=== PATIENT | male | born 1960 | race Caucasian/White ===

== ENCOUNTER 2021-05-15 02:45 | Inpatient (IN) | payer OTHER ==
[~2021-05-15] VITALS: Ht 175.3 cm; Wt 80.3 kg
[2021-05-15] VITALS (8 sets, daily range): BP systolic 126–197; BP diastolic 60–107
[2021-05-15] MEDS ORDERED: ATORVASTATIN CA20 MG PO (03:29)
[2021-05-15 03:30] LABS: HEMATOCRIT 38.8 % (42.0-52.0); HEMOGLOBIN 12.1 gm/dL (14.0-18.0); MCH 24.3 pg (26.0-34.0); MCHC 31.1 g/dL (28.0-37.0); MCV 78.3 fL (80.0-100.0); PLATELET COUNT 235 thou/uL (150-400); RBC 4.96 mil/uL (4.50-6.00); WBC 8.2 thou/uL (4.0-11.0)
[2021-05-15] MEDS ORDERED: CLONAZEPAM 0.50.5 M1 PO (03:30)
[2021-05-15] MEDS ORDERED: OXYCODONE HCL5 MG PO (03:37)
[2021-05-15 03:39] LABS: CALCIUM 8.6 mg/dL (8.5-10.1); CREATININE 1.2 mg/dL (0.7-1.3); POTASSIUM 4.6 mmol/L (3.5-5.1)
[2021-05-15] MEDS ORDERED: HYDROCORTISONE30 GM TOP (03:42)
[2021-05-15] MEDS ORDERED: FLEXERIL PO (03:42)
[2021-05-15] MEDS ORDERED: ESCITALOPRA5 MG/5 ML PO (03:43)
[2021-05-15] MEDS ORDERED: FINASTERIDE5 MG PO (03:44)
[2021-05-15] MEDS ORDERED: PROTONIX 20 MG20 MG PO (03:44)
[2021-05-15 03:49] LABS: ALBUMIN 2.9 g/dL (3.4-5.0); TOTAL BILIRUBIN 0.2 mg/dL (0.2-1.0); TOTAL PROTEIN 7.1 g/dL (6.4-8.2)
[2021-05-15 04:32] LABS: ABSOLUTE NEUTROPHILS 4.8 thou/uL (1.4-8.2); ANISOCYTOSIS 2+; METAMYELOCYTES 1 %; NUCLEATED RBCS 1 /100WBC
[2021-05-15 04:33] LABS: OVALOCYTES 1+
[2021-05-15 05:11] LABS: BE(vivo) 3.2 mmol/L (-2 to +3); PCO2 55.8 mmHg (35.0-45.0); PO2 86.1 mmHg (80.0-100.0); pH 7.348 (7.360-7.450); sO2 95.9 % (92.0-98.0)
[2021-05-15] MEDS ORDERED: HYDROCORTISON-A10 ML PO (06:08)
[2021-05-15] MEDS ORDERED: HYDROCORTISONE10 MG PO (06:10)
--- NOTE | 2021-05-15 20:12 | NUR ---
PT ADMITTED TO THE UNIT FROM THE ER. ORIENTED TO ROOM AND BEDSPACE. ASSESSMENT CHARTED. MEDS PER SEP - GIVEN FENTANYL AND OXYCODONE FOR BACK PAIN THAT PT STATES HAD LITTLE EFFECT. GIVEN IMTREX FOR CO'S OF HEADACHE WITH RELIEF. OSWALD DIET AND FLUIDS. USING URINAL TO VOID. PT WITH NO CO'S OF NAUSEA - VERY GOOD APPITITE. NEW IV PLACED IN R HAND - NO CO'S AT THE PRESENT TIME.
[2021-05-16 03:30] VITALS: BP 148/79
[2021-05-16 07:25] VITALS: BP 148/95
--- NOTE | 2021-05-16 07:32 | EKG ---
[address] [facility] [place] [address] ELECTROCARDIOGRAM REPORT Name: LIV CHAN Room #: 212- ADM IN M.R.#: [id number] Admission: 05/15/21 Attend Phys: Kirsty Domínguez MD Discharge: Date of : 62 Report #: [id number] [facility] ED Test Date: 2021-05-15 Test Time: 02:51:34 Pat Name: LIV CHAN Department: Room: [facility] Gender: M Mailroom Personnel: : 1960 Requested By: Amanda Cantu Order Number: [id number] MD: Rancho Jackson Measurements Intervals Holt Rate: 132 P: ND: QRS: 82 QRSD: 89 T: 77 QT: 298 QTc: 442 Interpretive Statements SINUS TACHYCARDIA Borderline right axis deviation Artifact in lead(s) II,III,aVR,aVL,aVF,V4,V5 No previous ECG available for comparison Electronically Signed On 05-16-2021 7:31:53 CDT by Rancho Jackson [email or web address] <ELECTRONICALLY SIGNED> By: Rancho Jackson MD, [facility] 05/16/21 0731 0 0 Rancho Jackson MD, FACC /EPI
--- NOTE | 2021-05-16 07:42 | NUR ---
PT CON'T TO TAKE PRN PAIN MEDS FOR CHRONIC C/O BACK PAIN THROUGH THE NOC, HEALTHY APPETITE AND VOIDING PER URINAL, WALKED TO BATHROOM AND BECAME VERY SOA RT STARTED TX AND PT ALSO NOTED HE WEARS CPAP AT [facility] RT SET SYSTEM UP FOR PT, RESTING ON AND OFF NOT MUCH REST, NEW IV PLACED IN LEFT HAND AFTER R HAND IV INFILTRATED, REASSMENTS REMAIN UNCHANGED FROM ORIGINAL ASSESSMENT, REPORT GIVEN TO NEXT SHIFT TO CON'T PPOC.
[2021-05-16 11:20] VITALS: BP 148/95
[2021-05-16 11:23] VITALS: BP 148/95
[2021-05-16 16:00] VITALS: BP 148/95
--- NOTE | 2021-05-16 16:46 | NUR ---
PATIENT IS DISCHARGED HOME WITH SELF CARE. PT IS GIVEN ALL DICHARGE AND FOLLOW UP INSTURCTIONS. PTS IV IS REMOVED AND TELE MONITOR D/C'D. PRESCRIPTION CALLED INTO [facility]. PT IS STABLE AT TIME OF DISCHARGE. PT IS ESCORTED OUT OF BUILDING BY STAFF VIA W/C.
== END 2021-05-16 16:34 | disposition home or self-care (01) | DRG 189 ==
LOC: ER 02:45 → 2N 05:00 → EROBS 05:00 → 2N 06:20
PROVIDERS: Emergency Medicine; ADMIT Hospitalist; ATTEND Hospitalist
PROC: 5A09357 Assistance with Respiratory Ventilation, Less than 24 Consecutive Hours, Continuous Positive Airway Pressure (ICD-10-PCS; principal; 2021-05-15)
PROC: 5A09357 Assistance with Respiratory Ventilation, Less than 24 Consecutive Hours, Continuous Positive Airway Pressure (ICD-10-PCS; 2021-05-16)
DX: J96.21 Acute and chronic respiratory failure with hypoxia (principal); F11.20 Opioid dependence, uncomplicated; Z20.822 Contact with and (suspected) exposure to COVID-19; G89.29 Other chronic pain; J43.9 Emphysema, unspecified; M54.9 Dorsalgia, unspecified; G43.909 Migraine, unspecified, not intractable, without status migrainosus; N40.0 Benign prostatic hyperplasia without lower urinary tract symptoms; F32.9 Major depressive disorder, single episode, unspecified; E78.5 Hyperlipidemia, unspecified; Z79.899 Other long term (current) drug therapy; Z88.6 Allergy status to analgesic agent; Z88.8 Allergy status to other drugs, medicaments and biological substances
CPT/HCPCS: 10081